=== PATIENT | male | born 1985 | race Caucasian/White ===

== ENCOUNTER 2018-01-21 05:45 | Emergency (ER) | payer OTHER ==
[2018-01-21] MEDS: diphenhydrAMINE HCL 25 MG CAPSULE PO (06:11)
== END 2018-01-21 06:14 | disposition home or self-care (01) ==
LOC: ER 05:45
DX: L25.9 Unspecified contact dermatitis, unspecified cause (principal)
CPT/HCPCS: 99283; Q0163